=== PATIENT | female | born 1970 | race Asian ===

== ENCOUNTER 2023-02-19 17:40 | Emergency (ER) | payer OTHER ==
[~2023-02-19] VITALS: Ht 154.9 cm; Wt 60.8 kg
[2023-02-19 17:46] VITALS: BP 123/67
--- NOTE | 2023-02-19 17:55 | NUR ---
PATIENT AMBULATED TO LOBBY WITH DAUGHTER
[2023-02-19] MEDS ORDERED: GABA-636 PO (18:38)
[2023-02-19] MEDS ORDERED: ACYC-279 PO (18:38)
--- NOTE | 2023-02-19 19:15 | NUR ---
Patient discharged with v/s stable. Written and verbal after care instructions given and explained. Patient alert, oriented and verbalized understanding of instructions. Ambulatory with steady gait. All questions addressed prior to discharge. ID band removed. Patient advised to follow up with PMD. Rx of ACYCLOVIR AND GABAPENTIN given. Patient educated on indication of medication including possible reaction and side effects. Opportunity to ask questions provided and answered.
[2023-02-19 19:16] VITALS: BP 121/65
== END 2023-02-19 19:15 | disposition home or self-care (01) ==
LOC: MED 17:40
DX: B02.9 Zoster without complications (principal); Z79.899 Other long term (current) drug therapy
CPT/HCPCS: 99283

== ENCOUNTER 2023-12-24 21:03 | Inpatient (IN) | payer OTHER ==
[~2023-12-24] VITALS: Ht 157.5 cm; Wt 61.7 kg
[~2023-12-24 21:03] MED LIST: ACYC-279 PO; GABA-636 PO
[2023-12-24 21:10] VITALS: BP 126/72; PULSE 100; RESP 18; TEMP 98.3; O2SAT 94
[2023-12-24 23:10] LABS: BASOPHILS # (AUTO) 0.1 K/uL (0.00-0.22); BASOPHILS % (AUTO) 1.2 % (0.0-2.0); EOSINOPHILS # (AUTO) 0.6 K/uL (0-0.4); EOSINOPHILS % (AUTO) 5.2 % (0.0-4.0); HEMATOCRIT 29.4 % (36-48); HEMOGLOBIN 10.1 g/dL (12.0-16.0); LYMPHOCYTES # (AUTO) 2.3 K/uL (2.5-16.5); LYMPHOCYTES % (AUTO) 19.2 % (20.5-51.1); MEAN CORPUSCULAR HEMOGLOBIN 32 pg (27-31); MEAN CORPUSCULAR HGB CONC 34 g/dL (33-37); MEAN CORPUSCULAR VOLUME 93.9 fL (80-94); MONOCYTES # (AUTO) 1.3 K/uL (0.8-1.0); MONOCYTES % (AUTO) 11.2 % (1.7-9.3); NEUTROPHILS # (AUTO) 7.5 K/uL (1.8-7.7); NEUTROPHILS % (AUTO) 63.2 % (42.2-75.2); PLATELET COUNT (AUTO) 200 K/uL (140-450); RED BLOOD CELL COUNT(AUTO) 3.13 MIL/uL (4.20-5.40); RED CELL DISTRIBUTION WIDTH 14.2 % (11.6-13.7); WHITE BLOOD COUNT (AUTO) 11.8 K/uL (4.8-10.8)
[2023-12-24 23:32] LABS: CALCIUM 9.5 mg/dL (8.5-10.1); CREATININE 0.8 mg/dL (0.6-1.3); POTASSIUM 4.3 mmol/L (3.5-5.1)
[2023-12-25] VITALS (9 sets, daily range): BP systolic 117–126; BP diastolic 63–70; PULSE 77–88; RESP 16–18; TEMP 97.4–98.1; O2SAT 94–98
[2023-12-25 00:08] LABS: ANION GAP 8.8 (8-16); CARBON DIOXIDE 30.5 mmol/L (21-32)
[2023-12-25] MEDS: HEPARIN PER PHARMACY MC STA (01:03)
[2023-12-25] MEDS: hePARIN / DEXT 5% PREMIX 250 ML IV ONE (01:05)
[2023-12-25] MEDS ORDERED: AZITHROMYCIN 500 MG INJ VIAL IV ONE (01:30)
[2023-12-25] MEDS ORDERED: cefTRIAXone 1,000 MG VIAL ONE (01:31)
[2023-12-25 01:46] LABS: LACTIC ACID 1.2 mmol/L (0.4-2.0)
[2023-12-25 02:06] LABS: INR 0.99 (0.8-1.2); PARTIAL THROMBOPLASTIN TIME 27.8 secs (22-35.6); PROTHROMBIN TIME 10.4 secs (10.8-13.4)
[2023-12-25] MEDS ORDERED: hePARIN / DEXT 5% PREMIX 250 ML IV ONE (02:16)
[2023-12-25] MEDS: AZITHROMYCIN 500 MG in DEXTROSE 5% 250 ML IV ONE (02:25)
[2023-12-25] MEDS ORDERED: LORL100T PO (03:09)
[2023-12-25] MEDS ORDERED: FENO145T PO (03:09)
[2023-12-25] MEDS ORDERED: SIMV-373 PO (03:09)
[2023-12-25] MEDS: hePARIN / DEXT 5% PREMIX 250 ML IV PRN (03:27)
[2023-12-25] MEDS ORDERED: HYDROcodone/APAP 5/325 MG 1 TAB TAB PO PRN (06:55)
[2023-12-25] MEDS ORDERED: ACETAMINOPHEN 325 MG TAB PO PRN (06:55)
[2023-12-25] MEDS ORDERED: POTASSIUM CHLORIDE 10 MEQ TABER PO PRN (06:55)
[2023-12-25] MEDS ORDERED: MORPHINE SULFATE 4 MG/ML SYR IVP PRN (06:55)
[2023-12-25] MEDS ORDERED: KCL 20 MEQ IN 100 mL PREMIX 200 ML IV PRN (06:55)
[2023-12-25] MEDS ORDERED: MAGNESIUM OXIDE 400 MG TAB PO PRN (06:55)
[2023-12-25] MEDS ORDERED: MAG SULF 2000 MG/WATER PREMIX 50 ML IV PRN (06:55)
[2023-12-25] MEDS ORDERED: ONDANSETRON 4 MG/2 ML VIAL IVP PRN (06:55)
[2023-12-25] MEDS ORDERED: HEPARIN PER PHARMACY MC PRN (07:05)
[2023-12-25] MEDS: AZITHROMYCIN 500 MG in DEXTROSE 5% 250 ML IV SCH (08:16)
[2023-12-25 09:06] LABS: INR 0.99 (0.8-1.2); PROTHROMBIN TIME 10.4 secs (10.8-13.4)
[2023-12-25] MEDS: DOCUSATE SODIUM 100 MG GELCAP PO SCH (09:26)
[2023-12-25] MEDS: APIXABAN 2.5 MG TAB PO SCH (21:26)
[2023-12-26] VITALS (11 sets, daily range): BP systolic 101–112; BP diastolic 58–76; PULSE 72–88; RESP 18–20; TEMP 97.6–98; O2SAT 94–99
[2023-12-26 07:04] LABS: BASOPHILS # (AUTO) 0.1 K/uL (0.00-0.22); EOSINOPHILS # (AUTO) 0.6 K/uL (0-0.4); EOSINOPHILS % (AUTO) 6.8 % (0.0-4.0); HEMATOCRIT 32.6 % (36-48); HEMOGLOBIN 11.3 g/dL (12.0-16.0); LYMPHOCYTES # (AUTO) 1.7 K/uL (2.5-16.5); LYMPHOCYTES % (AUTO) 17.9 % (20.5-51.1); MEAN CORPUSCULAR HEMOGLOBIN 33 pg (27-31); MEAN CORPUSCULAR HGB CONC 35 g/dL (33-37); MEAN CORPUSCULAR VOLUME 94.8 fL (80-94); MONOCYTES # (AUTO) 1.2 K/uL (0.8-1.0); MONOCYTES % (AUTO) 12.5 % (1.7-9.3); NEUTROPHILS # (AUTO) 5.8 K/uL (1.8-7.7); NEUTROPHILS % (AUTO) 61.8 % (42.2-75.2); PLATELET COUNT (AUTO) 219 K/uL (140-450); RED BLOOD CELL COUNT(AUTO) 3.44 MIL/uL (4.20-5.40); RED CELL DISTRIBUTION WIDTH 14.2 % (11.6-13.7); WHITE BLOOD COUNT (AUTO) 9.3 K/uL (4.8-10.8)
[2023-12-26 07:07] LABS: ALBUMIN 2.2 g/dL (3.4-5.0); ANION GAP 12.2 (8-16); CALCIUM 9.1 mg/dL (8.5-10.1); CARBON DIOXIDE 28.6 mmol/L (21-32); CREATININE 0.8 mg/dL (0.6-1.3); MAGNESIUM 1.9 mg/dL (1.8-2.4); POTASSIUM 3.8 mmol/L (3.5-5.1); TOTAL BILIRUBIN 0.2 mg/dL (0.0-1.0); TOTAL PROTEIN, SERUM 7.7 g/dL (6.4-8.2)
[2023-12-26] MEDS ORDERED: APIX5TAB PO (15:45)
[2023-12-26] MEDS ORDERED: APIX2.5 PO (15:45)
== END 2023-12-26 17:00 | disposition home or self-care (01) | DRG 175 ==
LOC: MED 21:03 → MTU 12-25 07:00
PROVIDERS: ADMIT Hospitalist; ATTEND Hospitalist
PROC: B32T1ZZ Computerized Tomography (CT Scan) of Left Pulmonary Artery using Low Osmolar Contrast (ICD-10-PCS; principal; 2023-12-25)
PROC: B3201ZZ Computerized Tomography (CT Scan) of Thoracic Aorta using Low Osmolar Contrast (ICD-10-PCS; 2023-12-25)
PROC: B32S1ZZ Computerized Tomography (CT Scan) of Right Pulmonary Artery using Low Osmolar Contrast (ICD-10-PCS; 2023-12-25)
DX: I26.99 Other pulmonary embolism without acute cor pulmonale (principal); E43 Unspecified severe protein-calorie malnutrition; J96.01 Acute respiratory failure with hypoxia; I82.402 Acute embolism and thrombosis of unspecified deep veins of left lower extremity; C34.90 Malignant neoplasm of unspecified part of unspecified bronchus or lung; R65.10 Systemic inflammatory response syndrome (SIRS) of non-infectious origin without acute organ dysfunction; Z68.24 Body mass index [BMI] 24.0-24.9, adult
CPT/HCPCS: 36415; 71045; 71275; 80048; 80053; 83605; 83735; 83880; 84484; 85025; 85610; 85730; 87040; 87081; 93005; 93307; 93971; 94760; 96365; 96367; 96375; 99291; J0456; J0696; J1644; J7060; Q9967

== ENCOUNTER 2024-01-02 12:16 | Observation (INO) | payer OTHER ==
[~2024-01-02] VITALS: Ht 157.5 cm; Wt 61.3 kg
[~2024-01-02 12:16] MED LIST changes: +APIX2.5 PO; +APIX5TAB PO; +FENO145T PO; +LORL100T PO; +SIMV-373 PO
[2024-01-02 12:20] VITALS: BP 132/87; PULSE 79; RESP 20; TEMP 98.3; O2SAT 97
[2024-01-02 13:14] LABS: BASOPHILS # (AUTO) 0.1 K/uL (0.00-0.22); BASOPHILS % (AUTO) 0.9 % (0.0-2.0); EOSINOPHILS # (AUTO) 0.9 K/uL (0-0.4); EOSINOPHILS % (AUTO) 7.7 % (0.0-4.0); HEMATOCRIT 33.8 % (36-48); HEMOGLOBIN 11.4 g/dL (12.0-16.0); LYMPHOCYTES # (AUTO) 1.9 K/uL (2.5-16.5); LYMPHOCYTES % (AUTO) 16.2 % (20.5-51.1); MEAN CORPUSCULAR HEMOGLOBIN 32 pg (27-31); MEAN CORPUSCULAR HGB CONC 34 g/dL (33-37); MONOCYTES # (AUTO) 1.3 K/uL (0.8-1.0); MONOCYTES % (AUTO) 11.4 % (1.7-9.3); NEUTROPHILS # (AUTO) 7.3 K/uL (1.8-7.7); NEUTROPHILS % (AUTO) 63.8 % (42.2-75.2); PLATELET COUNT (AUTO) 251 K/uL (140-450); RED CELL DISTRIBUTION WIDTH 14.3 % (11.6-13.7); WHITE BLOOD COUNT (AUTO) 11.5 K/uL (4.8-10.8)
[2024-01-02 13:20] LABS: ANION GAP 9.9 (8-16); CALCIUM 9.4 mg/dL (8.5-10.1); CARBON DIOXIDE 30.6 mmol/L (21-32); CREATININE 0.8 mg/dL (0.6-1.3); POTASSIUM 4.5 mmol/L (3.5-5.1)
[2024-01-02] MEDS ORDERED: MORPHINE SULFATE 4 MG/ML SYR IVP PRN (18:25)
[2024-01-02] MEDS ORDERED: KCL 20 MEQ IN 100 mL PREMIX 200 ML IV PRN (18:25)
[2024-01-02] MEDS ORDERED: POTASSIUM CHLORIDE 10 MEQ TABER PO PRN (18:25)
[2024-01-02] MEDS ORDERED: HYDROcodone/APAP 5/325 MG 1 TAB TAB PO PRN (18:25)
[2024-01-02] MEDS ORDERED: ACETAMINOPHEN 325 MG TAB PO PRN (18:25)
[2024-01-02] MEDS ORDERED: MAGNESIUM OXIDE 400 MG TAB PO PRN (18:25)
[2024-01-02] MEDS ORDERED: ONDANSETRON 4 MG/2 ML VIAL IVP PRN (18:25)
[2024-01-02] MEDS: NACL 0.9% 1,000 ML IV SCH (18:42)
[2024-01-02 23:46] VITALS: PULSE 78; RESP 20; O2SAT 99
[2024-01-03] VITALS: BP 118/74; PULSE 76; PULSE 78; RESP 18; TEMP 97.6; O2SAT 98
[2024-01-03 04:00] VITALS: BP 115/70; PULSE 73; PULSE 75; RESP 16; TEMP 97.4; O2SAT 97
[2024-01-03 07:27] LABS: BASOPHILS # (AUTO) 0.1 K/uL (0.00-0.22); BASOPHILS % (AUTO) 1.1 % (0.0-2.0); EOSINOPHILS # (AUTO) 0.9 K/uL (0-0.4); HEMATOCRIT 32.8 % (36-48); LYMPHOCYTES # (AUTO) 1.7 K/uL (2.5-16.5); LYMPHOCYTES % (AUTO) 19.4 % (20.5-51.1); MEAN CORPUSCULAR HEMOGLOBIN 32 pg (27-31); MEAN CORPUSCULAR HGB CONC 33 g/dL (33-37); MEAN CORPUSCULAR VOLUME 94.8 fL (80-94); MONOCYTES # (AUTO) 1.1 K/uL (0.8-1.0); MONOCYTES % (AUTO) 12.2 % (1.7-9.3); NEUTROPHILS % (AUTO) 57.3 % (42.2-75.2); PLATELET COUNT (AUTO) 252 K/uL (140-450); RED BLOOD CELL COUNT(AUTO) 3.46 MIL/uL (4.20-5.40); RED CELL DISTRIBUTION WIDTH 14.3 % (11.6-13.7); WHITE BLOOD COUNT (AUTO) 8.7 K/uL (4.8-10.8)
[2024-01-03 08:00] VITALS: BP 115/70; PULSE 73; PULSE 75; RESP 16; TEMP 97.4; O2SAT 97
[2024-01-03] MEDS: ENOXAPARIN 40 MG/0.4 ML SYR SUBQ SCH (08:23)
[2024-01-03 11:21] LABS: ALBUMIN 2.2 g/dL (3.4-5.0); ANION GAP 12.7 (8-16); CALCIUM 8.4 mg/dL (8.5-10.1); CARBON DIOXIDE 26.8 mmol/L (21-32); CREATININE 0.8 mg/dL (0.6-1.3); POTASSIUM 4.5 mmol/L (3.5-5.1); TOTAL BILIRUBIN 0.2 mg/dL (0.0-1.0); TOTAL PROTEIN, SERUM 7.4 g/dL (6.4-8.2)
[2024-01-03 12:00] VITALS: BP 106/62; PULSE 68; PULSE 74; RESP 18; TEMP 98.1; O2SAT 97
[2024-01-03] MEDS: APIXABAN 2.5 MG TAB PO SCH (12:35)
[2024-01-03] MEDS ORDERED: CEFD300C3 PO (14:13)
[2024-01-03 14:35] VITALS: BP 106/62; PULSE 68; RESP 18; TEMP 98.1
== END 2024-01-03 15:00 | disposition home or self-care (01) ==
LOC: MED 12:16 → MTU 18:24
PROVIDERS: ADMIT Student in an Organized Health Care Education/Training Program; ATTEND Student in an Organized Health Care Education/Training Program
DX: M94.0 Chondrocostal junction syndrome [Tietze] (principal); C34.90 Malignant neoplasm of unspecified part of unspecified bronchus or lung; I21.A1 Myocardial infarction type 2; J96.01 Acute respiratory failure with hypoxia; I82.402 Acute embolism and thrombosis of unspecified deep veins of left lower extremity; I26.99 Other pulmonary embolism without acute cor pulmonale; E78.5 Hyperlipidemia, unspecified; Z86.711 Personal history of pulmonary embolism; Z79.899 Other long term (current) drug therapy
CPT/HCPCS: 36415; 71045; 80048; 80053; 82948; 83735; 84484; 85025; 87081; 93005; 96360; 96361; 96372; 99285; G0378; J1650